=== PATIENT | male | born 1975 | race Caucasian/White ===

== ENCOUNTER 2020-10-12 22:47 | Emergency (ER) | payer MEDICAID ==
[~2020-10-12] VITALS: Ht 170.2 cm; Wt 81.6 kg
[2020-10-12 22:52] VITALS: BP 128/81; Ht 170.2 cm; Wt 81.6 kg
[2020-10-12] MEDS ORDERED: CLINDAMYCIN HC300 MG PO (23:49)
== END 2020-10-13 00:10 | disposition home or self-care (01) ==
LOC: D.ER 22:47
DX: K02.9 Dental caries, unspecified (principal); K08.89 Other specified disorders of teeth and supporting structures; K03 Other diseases of hard tissues of teeth; K04.7 Periapical abscess without sinus